=== PATIENT | male | born 1935 | race Asian ===

== ENCOUNTER 2019-01-06 12:00 | Emergency (ER) | payer OTHER ==
[~2019-01-06] VITALS: Ht 182.9 cm; Wt 81.6 kg
[~2019-01-06 12:00] MED LIST: AMLO2.5T PO; CALCITRIOL0.5 MCG OR; CORRECTOL100 MG OR; FURO40TA93 PO; HYDR5TAB9 PO; LISI5TAB10 PO; MEGESTROL AC40 MG OR; SENNA8.6 MG OR; TRAM50TA PO
[2019-01-06 12:10] VITALS: TEMP 97.6
[2019-01-06 15:46] VITALS: BP 158/72
== END 2019-01-06 15:46 | disposition home or self-care (01) ==
LOC: ED 12:00
DX: S16.1XXA Strain of muscle, fascia and tendon at neck level, initial encounter (principal); S70.01XA Contusion of right hip, initial encounter; V89.2XXA Person injured in unspecified motor-vehicle accident, traffic, initial encounter
CPT/HCPCS: 99283

== ENCOUNTER 2019-01-10 12:24 | Outpatient (CLI) | payer OTHER | END 2019-01-10 19:20 | disposition home or self-care (01) | LOC: LAB 12:24 | DX: R50.9 Fever, unspecified (principal) | CPT/HCPCS: 87040 ==

== ENCOUNTER 2019-12-24 04:50 | Emergency (ER) | payer OTHER ==
[~2019-12-24] VITALS: Ht 182.9 cm; Wt 81.6 kg
[2019-12-24 06:41] VITALS: BP 196/76; TEMP 98.2
== END 2019-12-24 06:34 | disposition home or self-care (01) ==
LOC: ED 04:50
DX: S20.211A Contusion of right front wall of thorax, initial encounter (principal); W18.39XA Other fall on same level, initial encounter; Y92.89 Other specified places as the place of occurrence of the external cause
CPT/HCPCS: 96372; 99283; J1885

== ENCOUNTER 2020-05-28 12:41 | Outpatient (CLI) | payer OTHER | END 2020-05-28 19:21 | disposition home or self-care (01) | LOC: LAB 12:41 | DX: D64.89 Other specified anemias (principal) | CPT/HCPCS: 85018 ==

== ENCOUNTER 2020-11-22 10:42 | Emergency (ER) | payer OTHER ==
[~2020-11-22] VITALS: Ht 182.9 cm; Wt 79.8 kg
[2020-11-22 10:53] VITALS: TEMP 97.8
[2020-11-22 12:20] LABS: PLATELET COUNT 181 K/uL (142-355)
[2020-11-22 14:44] VITALS: BP 154/89
== END 2020-11-22 14:45 | disposition home or self-care (01) ==
LOC: ED 10:42
PROVIDERS: Family Medicine
DX: K52.89 Other specified noninfective gastroenteritis and colitis (principal); J90 Pleural effusion, not elsewhere classified; N18.6 End stage renal disease; Z99.2 Dependence on renal dialysis; Z20.828 Contact with and (suspected) exposure to other viral communicable diseases
CPT/HCPCS: 80053; 85027; 87502; 87635; 87651; 99283; U0003

== ENCOUNTER 2020-11-29 07:46 | Emergency (ER) | payer OTHER ==
[~2020-11-29] VITALS: Ht 182.9 cm; Wt 79.8 kg
[2020-11-29 08:43] LABS: PLATELET COUNT 243 K/uL (142-355)
[2020-11-29 08:56] LABS: POTASSIUM 4.5 mmol/L (3.6-5.2)
[2020-11-29 11:20] VITALS: BP 172/95; TEMP 97.5
== END 2020-11-29 11:20 | disposition home or self-care (01) ==
LOC: ED 07:46
PROVIDERS: Family Medicine
DX: J18.9 Pneumonia, unspecified organism (principal); I50.9 Heart failure, unspecified; N18.6 End stage renal disease; Z99.2 Dependence on renal dialysis
CPT/HCPCS: 80053; 83880; 84484; 85027; 87040; 87502; 93005; 96372; 99283; J0696

== ENCOUNTER 2020-12-14 10:23 | Emergency (ER) | payer OTHER ==
[~2020-12-14] VITALS: Ht 182.9 cm; Wt 79.8 kg
[2020-12-14 10:35] VITALS: TEMP 97.8
[2020-12-14 11:35] LABS: PLATELET COUNT 231 K/uL (142-355)
[2020-12-14 11:51] LABS: POTASSIUM 4.1 mmol/L (3.6-5.2)
[2020-12-14 11:59] LABS: PARTIAL THROMBOPLASTIN TIME 25.4 SECONDS (24.5-33.6)
[2020-12-14 14:26] VITALS: BP 168/75
== END 2020-12-14 14:26 | disposition home or self-care (01) ==
LOC: ED 10:23
PROVIDERS: Hospitalist
DX: J18.9 Pneumonia, unspecified organism (principal); N18.6 End stage renal disease; Z99.2 Dependence on renal dialysis; I50.9 Heart failure, unspecified; Z20.828 Contact with and (suspected) exposure to other viral communicable diseases
CPT/HCPCS: 36415; 80053; 82550; 83880; 84484; 85027; 85610; 85730; 87502; 87635; 87651; 93005; 96365; 96375; 99284; J1100; J1940; J3370; U0003

== ENCOUNTER 2022-06-19 09:18 | Emergency (ER) | payer OTHER ==
[~2022-06-19] VITALS: Ht 182.9 cm; Wt 81.6 kg
[2022-06-19 10:45] VITALS: BP 217/92; TEMP 98
== END 2022-06-19 10:45 | disposition home or self-care (01) ==
LOC: ED 09:25
DX: S16.1XXA Strain of muscle, fascia and tendon at neck level, initial encounter (principal); R51.9 Headache, unspecified; V53.5XXA Driver of pick-up truck or van injured in collision with car, pick-up truck or van in traffic accident, initial encounter; Y92.89 Other specified places as the place of occurrence of the external cause
CPT/HCPCS: 93005; 99283

== ENCOUNTER 2022-06-20 10:46 | Outpatient (CLI) | payer OTHER | END 2022-06-20 18:56 | disposition home or self-care (01) | LOC: RAD 10:46 | PROVIDERS: ATTEND Internal Medicine Nephrology | DX: M25.562 Pain in left knee (principal); M25.462 Effusion, left knee ==